=== PATIENT | female | born 1995 | race Caucasian/White ===

== ENCOUNTER 2016-08-13 21:52 | Emergency (ER) | payer OTHER ==
[2016-08-13 21:58] VITALS: BP 96/65
[2016-08-13] MEDS ORDERED: Omeprazole CAP* 20 MG PO ONE (22:10)
--- NOTE | 2016-08-13 22:18 | UC ---
Henry Cavanaugh SooYoung, scribed for Lan Warren MD on 08/13/16 at 2205 . Abdominal Pain Female HPI - HPI Summary HPI Summary: A 20 y/o F presents to [facility] with epigastric abd pain onset approx 30 minutes [employer] [employer]. Pt had sharp pain, described as stabbing, under her ribs that caused her to vomit 4x. Denies hemesis, burning sensation. Pt had eaten ice cream earlier, was sitting on the couch at onset. Vomiting has alleviated the majority of the pain, but not all. Aggravating factors: deep breaths. She notes having this pain before, without vomiting, approx 5x in the past month and a half. Denies daily medications. No SHx. - History of Current Complaint Chief Complaint: UCGI Stated Complaint: ABD PAIN,VOMITING Time Seen by Provider: 08/13/16 21:56 Hx Obtained From: Patient, Family/Family Dinner Service Specialist - mother Hx Last Menstrual Period: 07/24 Onset/Duration: Lasting Hours, Still Present Timing: Constant Severity Initially: Moderate Severity Currently: Mild Pain Intensity: 2 Pain Scale Used: 0-10 Numeric Location: Epigastric Character: Other - stabbing Aggravating Factor(s): Food, Deep Breaths Alleviating Factor(s): Vomiting Associated Signs and Symptoms: Positive: Vomiting, Other: - neg hemesis. Allergies/Adverse Reactions: Allergies Allergy/AdvReac Type Severity Reaction Status Date / Time Latex Allergy Mild Rash Unverified 10/21/14 20:53 Home Medications: Home Medications Sucralfate TAB* [Carafate*] 1 gm PO ONCE 08/13/16 [History Confirmed 08/13/16] PMH/Surg Hx/FS Hx/Imm Hx Previously Healthy: No - denies HTN, GERD, DM - Surgical History Surgical History: None - Family History Known Family History: Negative: Cardiac Disease, Hypertension, Diabetes - Social History Occupation: Student Lives: With Family Alcohol Use: None Substance Use Type: None Smoking Status (MU): Never Smoked Tobacco - Immunization History Vaccination Up to Date: Yes Review of Systems Constitutional: Negative Gastrointestinal: Abdominal Pain, Vomiting, Other - neg: hemesis All Other Systems Reviewed And Are Negative: Yes Physical Exam Triage Information Reviewed: Yes Appearance: Well-Appearing, No Pain Distress Vital Signs: Initial Vital Signs Temp 98.1 F 08/13/16 21:54 Pulse 70 08/13/16 21:54 Resp 18 08/13/16 21:54 BP 96/65 08/13/16 21:54 Pulse Ox 99 08/13/16 21:54 Vital Signs Reviewed: Yes Eye Exam: Normal - EOMI, SAM ENT: Positive: Normal ENT inspection Neck: Positive: Supple, Nontender Respiratory: Positive: Lungs clear, Normal breath sounds Cardiovascular: Positive: RRR Abdomen Description: Positive: Soft, Other: - pos: mild epigastric tenderness Bowel Sounds: Positive: Present Musculoskeletal Exam: Normal Neurological Exam: Normal - A&Ox3; sensory/motor intact Psychological Exam: Normal - mood/affect appropriate Skin Exam: Normal - warm, dry, color reflects adequate perfusion Abd Pain Female Course/Dx - Course Course Of Treatment: Pt medications reviewed this visit. Normal BP reading and no follow-up instructions required. PATIENT TENDER IN EPIGASTRIUM, NOT IN RUQ. THIS PAIN HAS HAPPENED SEVERAL TIMES OVER THE LAST MONTH. PAIN GREATLY IMPROVED HERE IN THE CLINIC. PATIENT TO GO TO THE EMERGENCY DEPARTMENT FOR RETURN OF PAIN OR WORSENING OF SX. - Differential Dx/Diagnosis Provider Diagnoses: EPIGASTRIC PAIN AND VOMITING Discharge - Discharge Plan Condition: Stable Disposition: HOME Prescriptions: Omeprazole CAP* [Prilosec CAP* 20 MG] 20 mg PO BID #30 cap.dr Patient Education Materials: Acute Nausea and Vomiting (ED), Epigastric Pain ( ED) Referrals: Janie Osborn MD [Primary Care Provider] - Additional Instructions: FOLLOW UP WITH YOUR DOCTOR. GET SEEN AGAIN OR GO TO THE EMERGENCY DEPARTMENT FOR ANY WORSENING OF YOUR CONDITION; PAIN, FEVER, VOMITING, YOU FEEL ILL OR QUESTIONS OR CONCERNS. The documentation as recorded by the Henry sarah SooYoung accurately reflects the service I personally performed and the decisions made by me, Lan Warren MD.
== END 2016-08-13 22:22 | disposition home or self-care (01) ==
LOC: UCEAST 21:52
DX: R10.13 Epigastric pain (principal); R11.11 Vomiting without nausea
CPT/HCPCS: 99212; A9270-GY; G0463

== ENCOUNTER 2017-03-26 13:41 | Emergency (ER) | payer OTHER ==
[2017-03-26 13:57] VITALS: BP 121/77
--- NOTE | 2017-03-26 14:16 | UC ---
Abdominal Pain Female HPI - HPI Summary HPI Summary: Patient presents with an unremarkable past medical history. She presents for her second visit at the walk-in for intermittent episodes of epigastric abdominal pain. She states that her pain is intermittent and at times occurs after she eats food, and other times not. She states it radiates across the upper abdomen and feels like someone is stabbing her. She states she has been seen at the [facility] several months ago [facility] and it did nothing for her symptoms. She denies fever, chills, nausea, vomiting, diarrhea, abnormal vaginal discharge, or bleeding. LMP last week. - History of Current Complaint Chief Complaint: UCAbdominalPain Stated Complaint: ABDOMINAL PAIN Time Seen by Provider: 03/26/17 14:03 Hx Obtained From: Patient Hx Last Menstrual Period: 03/19/2016 ?: No Onset/Duration: Lasting Days, Other - onset was 07/24. Severity Initially: Moderate Severity Currently: Moderate Pain Intensity: 6 Location: Discrete At: RUQ, Discrete At: LUQ, Epigastric Radiates: No Character: Sharp Aggravating Factor(s): Deep Breaths Alleviating Factor(s): Spontaneous Resolution Associated Signs and Symptoms: Positive: Negative - Risk Factors Ectopic Risk Factor: Negative Ovarian Torsion Risk Factor: Negative Allergies/Adverse Reactions: Allergies Allergy/AdvReac Type Severity Reaction Status Date / Time latex Allergy Rash Verified 03/26/17 13:50 Home Medications: Home Medications NK [No Home Medications Reported] 03/26/17 [History Confirmed 03/26/17] PMH/Surg Hx/FS Hx/Imm Hx Previously Healthy: Yes - Surgical History Surgical History: None - Family History Known Family History: Negative: Cardiac Disease, Hypertension, Diabetes - Social History Lives: Alone Alcohol Use: None Substance Use Type: None Smoking Status (MU): Never Smoked Tobacco - Immunization History Vaccination Up to Date: Yes Review of Systems Constitutional: Negative Skin: Negative Eyes: Negative ENT: Negative Respiratory: Negative Cardiovascular: Negative Gastrointestinal: Abdominal Pain Genitourinary: Negative Motor: Negative Neurovascular: Negative Musculoskeletal: Negative Neurological: Negative Psychological: Negative Is Patient Immunocompromised?: No All Other Systems Reviewed And Are Negative: Yes Physical Exam Triage Information Reviewed: Yes Appearance: Pain Distress Vital Signs: Initial Vital Signs Temp 98.9 F 03/26/17 13:51 Pulse 90 03/26/17 13:51 Resp 18 03/26/17 13:51 BP 121/77 03/26/17 13:51 Pulse Ox 99 03/26/17 13:51 Eye Exam: Normal ENT Exam: Normal Neck exam: Normal Neck: Positive: 1 Respiratory Exam: Normal Cardiovascular Exam: Normal Abdomen Description: Positive: Soft, Other: - palpable pain noted of the epigastium, ruq and luq no rebound, guarding noted. Musculoskeletal Exam: Normal Neurological Exam: Normal Psychological Exam: Normal Skin Exam: Normal Abd Pain Female Course/Dx - Course Course Of Treatment: Patient presents with complaints of 7 month onset intermittent epigastric pain that radiated across the upper abdomen. She has trialed prilosec with no improvment. I feel her symtpoms are concerning and I feel need further work-up she was referred to the ER. She was accompanied by her signficant other who can take her there. She verbalzied understanding of and in agreement with the discharge plan. - Differential Dx/Diagnosis Differential Diagnosis: Other - abdominal pain Provider Diagnoses: abdominal pain Discharge - Discharge Plan Condition: Stable Disposition: OTHER Discharge Disposition Comment: go directly to the er Patient Education Materials: Abdominal Pain (ED) Referrals: Janie Osborn MD [Primary Care Provider] - Additional Instructions: Go directly to the ER.
== END 2017-03-26 14:15 | disposition home or self-care (01) ==
LOC: UCEAST 13:41
DX: R10.13 Epigastric pain (principal)
CPT/HCPCS: 99211; G0463

== ENCOUNTER 2017-03-26 14:34 | Emergency (ER) | payer OTHER ==
[2017-03-26 17:15] LABS: ABS Basophils 0 10^3/ul (0-0.2); ABS Eosinophils 0 10^3/ul (0-0.6); ABS Lymphocytes 2.7 10^3/ul (1.0-4.8); ABS Monocytes 0.7 10^3/ul (0-0.8); ABS Neutrophils 7.9 10^3/ul (1.5-7.7); ABS Nucleated RBC 0 10^3/ul; Eosinophil % 0.4 % (0-6); Hematocrit 39 % (35-47); Hemoglobin 13.2 g/dl (12.0-16.0); Lymphocyte % 23.6 % (25-47); Mean Corpuscular HGB Conc 34 g/dl (31-36); Mean Corpuscular Hemoglobin 29 pg (27-31); Mean Corpuscular Volume 87 fL (80-97); Mean Platelet Volume 8 um3 (7.4-10.4); Nucleated Red Blood Cells % 0; Platelet Count 294 10^3/ul (150-450); Red Blood Count 4.53 10^6/ul (4.0-5.4); Red Cell Distribution Width 15 % (10.5-15); White Blood Count 11.3 10^3/ul (3.5-10.8)
[2017-03-26 17:22] LABS: INR 0.99 (0.77-1.02)
[2017-03-26 17:28] LABS: EGFR Non-African American 94.2 (>60)
[2017-03-26] MEDS ORDERED: Ketorolac INJ* 30 MG/ML 1 ML VIAL ONE (19:02)
[2017-03-26] MEDS ORDERED: Ketorolac INJ* 30 MG/ML 1 ML VIAL IV PUSH ONE (19:02)
[2017-03-26 19:11] VITALS: BP 129/53
[2017-03-26 19:28] LABS: Urine Appearance Clear; Urine Blood 1+ (Negative); Urine Color Yellow; Urine Ketones Negative (Negative); Urine Protein Negative (Negative); Urine Specific Gravity 1.009 (1.010-1.030); Urine Urobilinogen Negative (Negative)
--- NOTE | 2017-03-26 19:46 | RAD ---
HISTORY: Right upper quadrant pain, elevated LFTs, COMPARISONS: None TECHNIQUE: Multiple transverse and longitudinal ultrasound images were obtained of the right upper quadrant of the abdomen using grayscale and color Doppler imaging. FINDINGS: LIVER: The liver is normal in shape, size, contour, and echogenicity. There are no focal parenchymal masses. There is normal hepatopedal flow of the portal vein on Doppler imaging. BILIARY TREE: There is mild intrahepatic biliary dilatation. The common duct measures 0.6 cm. GALLBLADDER: Gallstones are noted. There is a positive sonographic Flowers sign. There is no gallbladder wall thickening or pericholecystic fluid. PANCREAS: The head of the pancreas is unremarkable. The tail of the pancreas is not well visualized secondary to overlying bowel gas. RIGHT KIDNEY: The right kidney is normal in shape, size, contour, and echogenicity. There is no hydronephrosis or nephrolithiasis. The right kidney measures 10.1 x 4.8 x 4.1 cm. AORTA AND IVC: The aorta and IVC are unremarkable. FLUID: There are no pleural effusions. There is no free fluid within the hepatorenal recess. OTHER FINDINGS: None. IMPRESSION: CHOLELITHIASIS, WITH A POSITIVE SONOGRAPHIC FLOWERS SIGN. THE SONOGRAPHIC FEATURES ARE SUGGESTIVE OF, BUT INDETERMINATE FOR, ACUTE CHOLECYSTITIS. MILD INTRAHEPATIC DILATATION.
[2017-03-26] MEDS ORDERED: fentaNYL* 50 MCG/ML 2 ML VIAL (100 MCG VIAL) IV SLOW PU ONE (20:26)
[2017-03-26] MEDS ORDERED: Metoclopramide IV* 5 MG/ML 2 ML VIAL IV SLOW PU ONE (20:27)
[2017-03-26] MEDS ORDERED: NS 0.9% 1000 ML* 1,000 ML IV ONE (20:27)
--- NOTE | 2017-03-26 21:39 | ED ---
Tyson Cavanaugh Natalie, scribed for Belen Pichardo MD on 03/26/17 at 1849 . Abdominal Pain/Female - HPI Summary HPI Summary: The patient is a 21 y/o presenting to the ED from Urgent Care c/o severe pain starting at 11:30 today. She had to leave work because she was throwing up clear liquid. She states she cant take the pain anymore. 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 She has been taking her fathers Sucralfate (half tablet) PRN. She states she took it fewer than 10 times, and the pain went away until today. She took a whole Sucralfate today at 12:00 to no relief. Her pain was rated 10/10 before, and now it is currently rated 8/10. The pain worsens when lying down. She does not have a fever, sore throat, chills, sweats. She did have a serious illness with tonsilitis in the past but denies hx mono. She went to Urgent Care in July 2016, and they diagnosed her with GERD, where she was prescribed Prilosec. After the pain in July 2016, this was the first time that she has had the pain again. Her PCP is Dr. Janie Osborn. She has not seen Dr. Osborn for this complaint, and has not seen a provider since the urgent care visit in July 2016. She states she did not take the prilosec, but instead used her father's sucralfate. FHx father "gastric" ulcers, maternal grandmother with gallstones. LNMP: last week. . She is allergic to latex and morphine, which makes her feeling like her throat is closing. UTD on vaccinations. Pt denies alcohol, illicit drugs and tobacco abuse. Pt's parents and pt's boyfriend are present for the initial interview. - History of Current Complaint Chief Complaint: EDAbdPain Stated Complaint: STOMACH PAIN Time Seen by Provider: 03/26/17 16:56 Hx Obtained From: Patient Hx Last Menstrual Period: 03/19/2016 ?: No Onset/Duration: Sudden Onset, Lasting Hours - started at 11:30 today, Still Present Timing: Frequency Of Episodes - second serious epsiode in the last year Severity Initially: Severe Severity Currently: Severe Pain Intensity: 6 Pain Scale Used: 0-10 Numeric Location: Discrete At: RUQ, Epigastric Radiates: No Character: Sharp Aggravating Factor(s): Other: - lying down Alleviating Factor(s): Other: - Suralfate, sitting up Associated Signs and Symptoms: Positive: Nausea, Vomiting, Other: - NEGATIVE: sore throat, chills, sweats. Negative: Fever Allergies/Adverse Reactions: Allergies Allergy/AdvReac Type Severity Reaction Status Date / Time latex Allergy Rash Verified 03/26/17 13:50 morphine Allergy Difficulty Verified 03/26/17 19:15 Breathing PMH/Surg Hx/FS Hx/Imm Hx Previously Healthy: No - tonsillitis Endocrine/Hematology History: Denies: Hx Diabetes, Hx Thyroid Disease Cardiovascular History: Denies: Hx Hypercholesterolemia, Hx Hypertension, Hx Peripheral Vascular Disease GI History: Reports: Hx Gastroesophageal Reflux Disease - dx by urgent care July 2016 Musculoskeletal History: Denies: Hx Arthritis, Hx Osteoporosis, Hx Scoliosis Sensory History: Denies: Hx Cataracts, Hx Contacts or Glasses, Hx Glaucoma Opthamlomology History: Denies: Hx Cataracts, Hx Contacts or Glasses, Hx Glaucoma Neurological History: Denies: Hx Headaches, Hx Seizures, Hx Transient Ischemic Attacks (TIA), Other Neuro Impairments/Disorders Psychiatric History: Denies: Hx Anxiety, Hx Depression - Surgical History Surgery Procedure, Year, and Place: no surgical hx - Immunization History Date of Tetanus Vaccine: UTD Date of Influenza Vaccine: NONE Infectious Disease History: No Infectious Disease History: Denies: Hx Clostridium Difficile, Hx Hepatitis, Hx Human Immunodeficiency Virus (HIV), Hx of Known/Suspected MRSA, Hx Shingles, Hx Tuberculosis, Hx Known/ Suspected VRE, Hx Known/Suspected VRSA, History Other Infectious Disease, Traveled Outside the [place] in Last 30 Days - Family History Known Family History: Positive: Other - gastric ulcers (father), gallstones ( grandmother) Negative: Cardiac Disease, Hypertension, Diabetes - Social History Occupation: Employed Full-time - manger at [employer] Alcohol Use: None Hx Substance Use: No Substance Use Type: Reports: None Hx Tobacco Use: No Smoking Status (MU): Never Smoked Tobacco Review of Systems Negative: Fever, Chills Negative: Sore Throat Positive: Abdominal Pain, Vomiting, Nausea Skin: Negative Neurological: Negative Psychological: Normal All Other Systems Reviewed And Are Negative: Yes Physical Exam Triage Information Reviewed: Yes Vital Signs On Initial Exam: Initial Vitals Temp Pulse Resp BP Pulse Ox 98.3 F 78 18 123/70 100 03/26/17 14:44 18 14:44 03/26/17 14:44 03/26/17 14:44 03/26/17 14:44 Vital Signs Reviewed: Yes Appearance: Positive: Well-Nourished, Ill-Appearing, Pain Distress Skin: Positive: Warm, Skin Color Reflects Adequate Perfusion, Other - acne scars on face Head/Face: Positive: Normal Head/Face Inspection Eyes: Positive: EOMI, Conjunctiva Clear ENT: Positive: Tonsillar swelling, Other - tonsillar swelling, no redness, no exudate. Negative: Pharyngeal erythema, Nasal congestion, Nasal drainage, Tonsillar exudate, Hoarse voice Neck: Positive: Supple, Nontender, No Lymphadenopathy Respiratory/Lung Sounds: Positive: Clear to Auscultation, Other - Lungs clear, Normal breath sounds, no respiratory distress Cardiovascular: Positive: RRR, Other - RRR, No murmur, pulses normal, brisk capillary refill Abdomen Description: Positive: Soft, Other: - tender RUQ, positive Flowers signs. Negative: CVA Tenderness (R), CVA Tenderness (L), Distended, McBurney's Point Tenderness, Peritoneal Signs Bowel Sounds: Positive: Present Musculoskeletal: Positive: Strength/ROM Intact. Negative: Edema Left, Edema Right Neurological: Positive: Sensory/Motor Intact, Alert, Oriented to Person Place, Time, Other - Alert, muscle tone normal, facial symmetry, speech normal, sensory /motor intact. Negative: Focal Deficit @ Psychiatric: Positive: Normal Diagnostics - Vital Signs Vital Signs Temp Pulse Resp BP Pulse Ox 03/26/17 18:00 76 121/76 100 03/26/17 17:30 70 106/79 95 03/26/17 17:00 80 97/51 100 03/26/17 16:53 90 100 03/26/17 16:52 121/60 03/26/17 14:44 98.3 F 78 18 123/70 100 - Laboratory Lab Results: Lab Results 03/26/17 03/26/17 03/26/17 Range/Units 17:03 17:03 17:03 WBC 11.3 H (3.5-10.8) 10^3/ul RBC 4.53 (4.0-5.4) 10^6/ul Hgb 13.2 (12.0-16.0) g/dl Hct 39 (35-47) % MCV 87 (80-97) fL MCH 29 (27-31) pg MCHC 34 (31-36) g/dl RDW 15 (10.5-15) % Plt Count 294 (150-450) 10^3/ul MPV 8 (7.4-10.4) um3 Neut % (Auto) 69.7 (38-83) % Lymph % (Auto) 23.6 L (25-47) % [place] % (Auto) 5.9 (1-9) % Eos % (Auto) 0.4 (0-6) % Baso % (Auto) 0.4 (0-2) % Absolute Neuts (auto) 7.9 H (1.5-7.7) 10^3/ul Absolute Lymphs (auto) 2.7 (1.0-4.8) 10^3/ul Absolute Monos (auto) 0.7 (0-0.8) 10^3/ul Absolute Eos (auto) 0 (0-0.6) 10^3/ul Absolute Basos (auto) 0 (0-0.2) 10^3/ul Absolute Nucleated RBC 0 10^3/ul Nucleated RBC % 0 INR (Anticoag Therapy) (0.77-1.02) Sodium 138 (133-145) mmol/L Potassium 3.5 (3.5-5.0) mmol/L Chloride 105 (101-111) mmol/L Carbon Dioxide 26 (22-32) mmol/L Anion Gap 7 (2-11) mmol/L BUN 9 (6-24) mg/dL Creatinine 0.78 (0.51-0.95) mg/dL Est GFR ( Amer) 121.1 (>60) Est GFR (Non-Af Amer) 94.2 (>60) BUN/Creatinine Ratio 11.5 (8-20) Glucose 101 H (70-100) mg/dL Lactic Acid 1.2 (0.5-2.0) mmol/L Calcium 9.7 (8.6-10.3) mg/dL Magnesium 2.2 (1.9-2.7) mg/dL Total Bilirubin 0.70 (0.2-1.0) mg/dL AST 221 H (13-39) U/L ALT 95 H (7-52) U/L Alkaline Phosphatase 63 (34-104) U/L C-Reactive Protein < 1.00 (< 5.00) mg/L Total Protein 7.7 (6.4-8.9) g/dL Albumin 4.5 (3.2-5.2) g/dL Globulin 3.2 (2-4) g/dL Albumin/Globulin Ratio 1.4 (1-3) Amylase 42 (29-103) U/L Lipase 29 (11.0-82.0) U/L Beta HCG, Quant < 0.60 mIU/mL / Range/Units 17:03 WBC (3.5-10.8) 10^3/ul RBC (4.0-5.4) 10^6/ul Hgb (12.0-16.0) g/dl Hct (35-47) % MCV (80-97) fL MCH (27-31) pg MCHC (31-36) g/dl RDW (10.5-15) % Plt Count (150-450) 10^3/ul MPV (7.4-10.4) um3 Neut % (Auto) (38-83) % Lymph % (Auto) (25-47) % [place] % (Auto) (1-9) % Eos % (Auto) (0-6) % Baso % (Auto) (0-2) % Absolute Neuts (auto) (1.5-7.7) 10^3/ul Absolute Lymphs (auto) (1.0-4.8) 10^3/ul Absolute Monos (auto) (0-0.8) 10^3/ul Absolute Eos (auto) (0-0.6) 10^3/ul Absolute Basos (auto) (0-0.2) 10^3/ul Absolute Nucleated RBC 10^3/ul Nucleated RBC % INR (Anticoag Therapy) 0.99 (0.77-1.02) Sodium (133-145) mmol/L Potassium (3.5-5.0) mmol/L Chloride (101-111) mmol/L Carbon Dioxide (22-32) mmol/L Anion Gap (2-11) mmol/L BUN (6-24) mg/dL Creatinine (0.51-0.95) mg/dL Est GFR ( Amer) (>60) Est GFR (Non-Af Amer) (>60) BUN/Creatinine Ratio (8-20) Glucose (70-100) mg/dL Lactic Acid (0.5-2.0) mmol/L Calcium (8.6-10.3) mg/dL Magnesium (1.9-2.7) mg/dL Total Bilirubin (0.2-1.0) mg/dL AST (13-39) U/L ALT (7-52) U/L Alkaline Phosphatase (34-104) U/L C-Reactive Protein (< 5.00) mg/L Total Protein (6.4-8.9) g/dL Albumin (3.2-5.2) g/dL Globulin (2-4) g/dL Albumin/Globulin Ratio (1-3) Amylase (29-103) U/L Lipase (11.0-82.0) U/L Beta HCG, Quant mIU/mL Result Diagrams: 03/26/17 17:03 03/26/17 17:03 Lab Statement: Any lab studies that have been ordered have been reviewed, and results considered in the medical decision making process. Abdominal Pain Fem Course/Dx - Course Course Of Treatment: Pt with epigastric and RUQ pain. Has been clinically diagnosed with GERD in July 2016, taking her father's prescription for sucralfate. Today with episode of severe epigastric and RUQ pain after having sandwich with sausage this am. Labs show normal wbc count, elevated transaminases, but normal bilirubin. Further evaluation will be with ultrasound of the gallbladder and care is signed out to Dr. Strong with those results pending. Pt was medicated with Toradol for pain after initial evaluation. - Diagnoses Differential Diagnosis: Positive: Gall Bladder Disease, Hepatitis, Pancreatitis , Renal Colic Provider Diagnoses: Biliary colic, Elevated transaminase level Discharge - Discharge Plan Condition: Stable Disposition: OTHER Discharge Disposition Comment: The patient is a sign-out to Dr. Strong at shift change, awaiting imaging. Referrals: David Strete MD [Medical Doctor] - As Soon As Possible Janie Osborn MD [Primary Care Provider] - The documentation as recorded by the Tyson sarah Natalie accurately reflects the service I personally performed and the decisions made by me, Belen Pichardo MD.
--- NOTE | 2017-03-26 21:57 | ED ---
Ragini Cavanaugh Julia, scribed for Timoteo Strong MD on 03/26/17 at 2134 . Progress - Progress Note Progress Note: This patient is signed out from Dr. Pichardo at the end of shift change awaiting an US. A gallbladder US reveals, as per radiologsit: CHOLELITHIASIS, WITH A POSITIVE SONOGRAPHIC BROWNE SIGN. THE SONOGRAPHIC FEATURES ARE SUGGESTIVE OF, BUT INDETERMINATE FOR, ACUTE CHOLECYSTITIS. MILD INTRAHEPATIC DILATATION. Course/Dx - Course Course Of Treatment: Pt is signed out at shift change awaiting US. US is indicative of cholelithiasis. Patient will be discharged and is instructed to follow up for a cholecystectomy, as soon as possible. - Diagnoses Provider Diagnoses: Biliary colic, Elevated transaminase level, Cholelithiasis The documentation as recorded by the Ragini sarah Julia accurately reflects the service I personally performed and the decisions made by Tae kim Abdul, MD.
== END 2017-03-26 22:03 ==
LOC: ED 14:34
DX: K80.70 Calculus of gallbladder and bile duct without cholecystitis without obstruction (principal); R74.0 Nonspecific elevation of levels of transaminase and lactic acid dehydrogenase [LDH]; Z88.5 Allergy status to narcotic agent
CPT/HCPCS: 36415; 76705; 80053; 81003; 81015; 82150; 83605; 83690; 83735; 84702; 85025; 85610; 86140; 86308; 86664; 86665; 96361; 96374; 96375; 99283; J1885; J2765; J3010

== ENCOUNTER 2018-01-11 15:45 | Emergency (ER) | payer OTHER ==
[2018-01-11 16:21] VITALS: BP 109/93
--- NOTE | 2018-01-11 16:43 | ED ---
Abdominal Pain/Female - HPI Summary HPI Summary: pt presents to the ED for evaluation of her abdominal pain. she states that she does have a history of gallstones. she still has her appendix. she just had her period. she still has her uterus. - History of Current Complaint Chief Complaint: UCAbdominalPain Stated Complaint: STOMACH ACHE,VOMITING Hx Obtained From: Patient, Family/[employer] Res[employer]ist Hx Last Menstrual Period: 12/27/17 Onset/Duration: Sudden Onset, Lasting Hours Timing: Constant Severity Initially: Moderate Severity Currently: Moderate Pain Intensity: 9 Allergies/Adverse Reactions: Allergies Allergy/AdvReac Type Severity Reaction Status Date / Time latex Allergy Rash Verified 01/11/18 16:21 morphine Allergy Difficulty Verified 01/11/18 16:21 Breathing PMH/Surg Hx/FS Hx/Imm Hx Previously Healthy: Yes Endocrine/Hematology History: Denies: Hx Diabetes, Hx Thyroid Disease Cardiovascular History: Denies: Hx Hypercholesterolemia, Hx Hypertension, Hx Peripheral Vascular Disease GI History: Reports: Hx Gastroesophageal Reflux Disease - dx by urgent care July 2016 Musculoskeletal History: Denies: Hx Arthritis, Hx Osteoporosis, Hx Scoliosis Sensory History: Denies: Hx Cataracts, Hx Contacts or Glasses, Hx Glaucoma Opthamlomology History: Denies: Hx Cataracts, Hx Contacts or Glasses, Hx Glaucoma Neurological History: Denies: Hx Headaches, Hx Seizures, Hx Transient Ischemic Attacks (TIA), Other Neuro Impairments/Disorders Psychiatric History: Denies: Hx Anxiety, Hx Depression - Surgical History Surgery Procedure, Year, and Place: no surgical hx - Immunization History Date of Tetanus Vaccine: UTD Date of Influenza Vaccine: NONE Infectious Disease History: No Infectious Disease History: Denies: Hx Clostridium Difficile, Hx Hepatitis, Hx Human Immunodeficiency Virus (HIV), Hx of Known/Suspected MRSA, Hx Shingles, Hx Tuberculosis, Hx Known/ Suspected VRE, Hx Known/Suspected VRSA, History Other Infectious Disease, Traveled Outside the [place] in Last 30 Days - Family History Known Family History: Positive: Other - gastric ulcers (father), gallstones ( grandmother) Negative: Cardiac Disease, Hypertension, Diabetes - Social History Alcohol Use: Rare Hx Substance Use: No Substance Use Type: Reports: None Hx Tobacco Use: No Smoking Status (MU): Never Smoked Tobacco Review of Systems Constitutional: Negative Eyes: Negative ENT: Negative Cardiovascular: Negative Positive: Shortness Of Breath - with pain Positive: Abdominal Pain, Vomiting, Nausea. Negative: Diarrhea Genitourinary: Negative Musculoskeletal: Negative Skin: Negative Positive: Weakness Psychological: Normal All Other Systems Reviewed And Are Negative: No Physical Exam Triage Information Reviewed: Yes Vital Signs On Initial Exam: Initial Vitals Temp Pulse Resp BP Pulse Ox 98.7 F 116 18 109/93 100 01/11/18 16:17 12 16:17 01/11/18 16:17 01/11/18 16:17 01/11/18 16:17 Vital Signs Reviewed: Yes Appearance: Positive: Well-Nourished, Ill-Appearing - pt actively dry heaving Skin: Positive: Warm, Dry Eyes: Positive: Normal, EOMI ENT: Positive: Other - slightly dry mucous membranes Neck: Positive: Supple, Nontender Respiratory/Lung Sounds: Positive: Clear to Auscultation, Breath Sounds Present Cardiovascular: Positive: Normal, RRR Abdomen Description: Positive: Other: - tender throughout the abdomen, more impressive to lower abdominal area. soft, non-surgical abdomen Bowel Sounds: Positive: Present Musculoskeletal: Positive: Normal, Strength/ROM Intact Neurological: Positive: Normal, Sensory/Motor Intact, CN Intact II-III Psychiatric: Positive: Normal AVPU Assessment: Alert Diagnostics - Vital Signs Vital Signs Temp Pulse Resp BP Pulse Ox 01/11/18 16:17 98.7 F 116 18 109/93 100 - Laboratory Lab Statement: Any lab studies that have been ordered have been reviewed, and results considered in the medical decision making process. Abdominal Pain Fem Course/Dx - Course Course Of Treatment: pt presents with abdominal pain. she has a hx of gallstones. she ate at 7pm last night. she states at 11pm she started vomiting and having abdominal pain not specific to her ruq. she is having persistent pain today. on exam, she is actively dry heaving. her abdomen is soft but she has diffuse tenderness. I informed pt that she would need more studies than we can provide in the . pt is comfortable going to [facility]. She refused an ambulance. the significant other will take her to the ED. - Diagnoses Provider Diagnoses: Abdominal pain Discharge - Sign-Out/Discharge Documenting (check all that apply): Patient Departure All imaging exams completed and their final reports reviewed: No Studies - Discharge Plan Condition: Stable Disposition: HOME Patient Education Materials: Acute Abdominal Pain (ED) Referrals: Janie Osborn MD [Primary Care Provider] - Additional Instructions: go to the [facility] immediately after discharge from the Urgent Care. - Billing Disposition and Condition Condition: STABLE Disposition: Home
== END 2018-01-11 16:53 | disposition home or self-care (01) ==
LOC: UCCORT 15:45
DX: R10.84 Generalized abdominal pain (principal); Z88.5 Allergy status to narcotic agent
CPT/HCPCS: 99212; G0463